=== PATIENT | male | born 1960 | race Caucasian/White ===

== ENCOUNTER 2018-08-22 07:26 | Emergency (ER) | payer OTHER ==
[2018-08-22 07:56] VITALS: BMI 33.4
[2018-08-22] MEDS ORDERED: LACTATED RINGERS SOLUTION 1000 ML INFUS.BAG IV ONE (08:29)
--- NOTE | 2018-08-22 08:43 | PDOC ---
History of Present Illness - General Chief Complaint: Diarrhea Stated Complaint: BACK PAIN Time Seen by Provider: 08/22/18 07:52 History Source: Patient Exam Limitations: No Limitations - History of Present Illness Initial Comments: HPI: 58 y/o male presenting to [facility] ER complaining of multiple episodes of diarrhea started last night around 10pm. States the diarrhea is watery and nonbloody. Endorses non bloody vomiting and diffuse abdominal pain. Also endorses chills without fever or diaphoresis. Trialed Imodium yesterday night with some relief. Tolerating PO. Recently returned from the [place] on 13 Aug 2018 after a 10 day visit. No similar symptoms while traveling. No other members of household with similar symptoms. No recent antibiotic use, last was approx. 8 months ago. Pt takes daily Percocet for chronic back pain. Has not taken it in three days. Past History - Past Medical History Allergies/Adverse Reactions: Allergies Allergy/AdvReac Type Severity Reaction Status Date / Time No Known Allergies Allergy Verified 08/22/18 07:45 Home Medications: Ambulatory Orders Albuterol Sulfate Inhaler - [Ventolin Hfa Inhaler -] 1 puff IH PRN 08/22/18 Budesonide/Formeterol Fumarate [SYMBICORT 160/4.5mcg -] 1 inh PO DAILY 08/22/18 Oxycodone HCl/Acetaminophen [Percocet 10-325 mg Tablet] 1 each PO PRN 08/22/18 Asthma: Yes COPD: No Other medical history: CHRONIC PAIN - Immunization History Immunization Up to Date: Yes - Suicide/Smoking/Psychosocial Hx Smoking History: Never smoked Information on smoking cessation initiated: No Hx Alcohol Use: No Drug/Substance Use Hx: No Review of Systems - Review of Systems Able to Perform ROS?: Yes Comments:: In addition to that documented in the HPI above, the additional ROS was obtained : Constitutional: Endorses chills. Denies fevers Head: Denies headache ENMT: Denies sore throat CV: Denies chest pain Resp: Denies acute SOB GI: Per HPI : Denies painful urination MSK: Denies recent trauma Skin: Denies new rashes Neuro: Denies new numbness or tingling or weakness Endocrine: Denies polyuria Heme: Denies bleeding or bruising *Physical Exam - Vital Signs Last Vital Signs Temp Pulse Resp BP Pulse Ox 98.0 F 112 H 18 118/80 96 08/22/18 07:45 08/22/18 07:45 08/22/18 07:45 08/22/18 07:45 08/22/18 07:45 - Physical Exam Comments: Constitutional: Nontoxic adult male in no acute distress or obvious discomfort. Obese body habitus Found semi-fowlers on hospital bed. Alert and oriented x4. Answered all questions appropriately and completely. Speech was non -labored, non-pressured. Head: Normocephalic. No obvious external signs of trauma. Eyes: Sclerae white. Moist conjunctiva, not injected. Ears: Hearing grossly intact. Nose: No nasal discharge. Throat: Oral cavity and pharynx normal. Moist oral mucosa. Neck: Supple, trachea is midline. Cardiovascular / Chest: Mildly tachycardic rate and regular rhythm. No murmur, rubs, clicks, or gallops. Peripheral pulses: radial pulses full. Respiratory: Breathing unlabored. Equal chest rise and fall. Mild diffuse wheezing. No stridor or rhonchi. Gastrointestinal: abdomen is diffusely tender without rebound but guarding. Soft and nondistended. No overlying skin lesions or obvious signs of trauma. Post surgical scar in umbilicus. Neuro: Alert and oriented. Moving all four extremities spontaneously. Skin: Warm, dry, and intact. : No R or L CVA tenderness. Psych: Affect: appropriate. Mood: normal. Moderate Sedation - Procedure Monitoring Vital Signs: Procedure Monitoring Vital Signs Temperature 98.0 F 08/22/18 07:45 Pulse Rate 112 H 08/22/18 07:45 Respiratory Rate 18 08/22/18 07:45 Blood Pressure 118/80 08/22/18 07:45 O2 Sat by Pulse Oximetry (%) 96 08/22/18 07:45 ED Treatment Course - LABORATORY CBC & Chemistry Diagram: 08/22/18 08:40 08/22/18 08:40 - ADDITIONAL ORDERS Additional order review: 08/22/18 08/22/18 10:01 08:40 Sodium 139 Potassium 3.9 Chloride 111 H Carbon Dioxide 21 Anion Gap 7 L BUN 21 H Creatinine 1.0 Creat Clearance w eGFR > 60 Random Glucose 99 Calcium 8.6 Total Bilirubin 0.4 AST 19 ALT 43 Alkaline Phosphatase 89 Total Protein 8.0 Albumin 4.0 Lipase 83 Urine Color Dk yellow Urine Appearance Slcloudy Urine pH 5.0 Ur Specific Bozrah 1.031 Urine Protein 2+ H Urine Glucose (UA) Negative Urine Ketones Negative Urine Blood 1+ H Urine Nitrite Negative Urine Bilirubin Negative Urine Urobilinogen Negative Ur Leukocyte Esterase Negative Urine WBC (Auto) 2 Urine RBC (Auto) 10 Ur Epithelial Cells Rare Hyaline Casts 15 Granular Casts 5 Urine Mucus Many 08/22/18 08:40 RBC 5.58 MCV 88.7 MCHC 34.8 RDW 13.8 MPV 8.4 Neutrophils % 64.6 Lymphocytes % 22.3 Monocytes % 10.5 H Eosinophils % 2.3 Basophils % 0.3 - RADIOLOGY Radiology Studies Ordered: Category Date Time Status ABDOMEN & PELVIS CT WITH CONTR [CT] Stat CT Scan 08/22/18 08:48 Completed - Medications Given in the ED: ED Medications Discontinued Medications Generic Name Dose Route Start Last Admin Trade Name Freq PRN Reason Stop Dose Admin Lactated Ringer's 1,000 ml 08/22/18 08:29 08/22/18 08:53 Lactated Ringers Solution IV 08/22/18 08:30 1,000 ml ONCE ONE Administration Medical Decision Making - Medical Decision Making *Reviewed vital signs, nursing notes, and prior visit documentation (if available). 58 y/o male with one day of vomiting and diarrhea with diffuse abdominal pain. Mildly tachycardic at triage. Will trend vitals. Suspect viral gastroenteritis made worse by mild opiate withdrawal. Will obtain CT of abdomen and pelvis, CBC , CMP, lipase, UA, and urine culture to further evaluate. Ordered IVFB. CBC unremarkable for leukocytosis. CMP unremarkable for significant electrolyte derangement. CT suggestive of diarrheal illness. Pt reasessed. Reports another episode of diarrhea. Ate a sandwich and drank water without vomiting. Repeat abdominal exam is unchanged from initial. Diffusely tender with grimace. Suspect secondary to acute gastroenteritis. Tachycardia resolved. Pt stable to discharge home with outpatient follow up as needed. *DC/Admit/Observation/Transfer Diagnosis at time of Disposition: Diarrhea Qualifiers: Diarrhea type: unspecified type Qualified Code(s): R19.7 - Diarrhea, unspecified - Discharge Dispostion Disposition: HOME Condition at time of disposition: Good Decision to Admit order: No - Referrals Referrals: ON STAFF,NOT [Primary Care Provider] - - Patient Instructions Printed Discharge Instructions: DI for Viral Gastroenteritis -- Adult Additional Instructions: Hoy te vieron por diarrea y vmitos. Irene sntomas probablemente son causados por un virus y desaparecen en los prximos ayoub sin medicamentos. Por favor contine bebiendo lquidos (agua, Gatorade, etc.) para mantenerse hidratado. Puede probar y comer edda comida blanda (galletas, etc.) despus de tiny dejado de vomitar simone 12 horas. Regrese a la lala de emergencias si banks vmito empeora y ya no puede retener lquidos, si comienza a sentirse deshidratado, si tiene fiebre, se desmaya, se desorienta, comienza a vomitar chad, tiene diarrea con chad o sientes que necesitas atencin de emergencia adicional. Juan Pablo puede rosita a banks mdico de atencin primaria si irene sntomas no mejoran. Vaya al departamento de emergencias ms cercano si banks afeccin empeora o si nadine que necesita edda evaluacin de emergencia adicional. You were seen today for diarrhea and vomiting. Your symptoms are likely caused by a virus and well go away in the next few days without medication. Please continue to drink fluids (water, Gatorade, etc) to stay hydrated. You can try and eat a small bland meal (crackers, etc) after you have stopped vomiting for 12 hours. Return to the emergency room if your vomiting becomes much worse and you are no longer able to keep fluids down, if you begin to feel dehydrated, if you develop a fever, pass out, become disoriented, begin vomiting blood, have bloody diarrhea, or you feel like you need additional emergency care. You can also see your primary care doctor if your symptoms do not improve. Go to the nearest emergency department if your condition worsens or you feel like you need additional emergency evaluation. Print Language: BELARUSIAN - Post Discharge Activity
--- NOTE | 2018-08-22 08:57 | PDOC ---
Attending Attestation - Resident Resident Name: NorwoodMarco A - ED Attending Attestation I have performed the following: I have examined & evaluated the patient, The case was reviewed & discussed with the resident, I agree w/resident's findings & plan, Exceptions are as noted - HPI HPI: 08/22/18 08:51 58yo M hx BPH, chronic low back pain presents to the ED with 24 hours of N/V/D and diffuse abd pain. Pt reports 5 episodes of NBNB emesis and innumerable episodes of brown, watery non blood diarrhea. Pt points to his lower abdomen when asked where the pain hurts the most. Denies hx similar sxs or sick contacts. [place], has been well since. Tried immodium yest with no relief of diarrhea. Denies fevers, +chills. Denies headache, focal weakness/numbness, dizziness, cp, sob, LE edema, rashes. Pt was taking percocet for his chronic back pain up until 2 days ago. - Physicial Exam PE: 08/22/18 08:57 agree with resident exam +diffuse abd pain including RLQ and LLQ. +guarding, no rebound. Mild abd distention. - Medical Decision Making 08/22/18 08:58 58yo M presents to the ED with N/V/D. Vitals remarkable for tachycardia to 112. Exam with diffuse abd ttp, RLQ and LLQ. DDx includes gastroenteritis vs colitis vs diverticulitis vs appendicitis vs UTI. Plan -labs -CTAP w IV contrast -IVF -UA/Ucx -reassess 08/22/18 13:05 CTAP with no acute path labs wnl ua neg for infection pt feeling much better, tolerating PO HR normalized after 1L fluids Likely gastroenteritis Plan for DC with PMD f/u and strict return precations Pt requests DC home I discussed the physical exam findings, ancillary test results and final diagnoses with the patient. I answered all of the patient's questions. The patient was satisfied with the care received and felt comfortable with the discharge plan and treatment plan. The patient will call their primary care physician within 24 hours to arrange follow-up and will return to the Emergency Department with any new, persistent or worsening symptoms.
[2018-08-22 09:09] LABS: BASO % 0.3 % (0-2.0); EOS % 2.3 % (0-4.5); HEMATOCRIT 49.5 % (35.4-49); HEMOGLOBIN 17.2 GM/dL (11.7-16.9); LYMPH % 22.3 % (8-40); MCH 30.8 pg (25.7-33.7); MCHC 34.8 g/dl (32.0-35.9); MEAN CELL VOLUME 88.7 fl (80-96); MEAN PLT VOLUME 8.4 fl (7.5-11.1); MONO % 10.5 % (3.8-10.2); NEUT % 64.6 % (42.8-82.8); PLATELET COUNT 169 K/MM3 (134-434); RBC 5.58 M/mm3 (4.00-5.60); RDW 13.8 % (11.9-15.9); WHITE BLOOD COUNT 7.5 K/mm3 (4.0-10.0)
[2018-08-22 09:55] LABS: ALK PHOS 89 U/L (45-117); ANION GAP 7 MMOL/L (8-16); BILIRUBIN,TOTAL 0.4 mg/dL (0.2-1); BLOOD UREA NITROGEN 21 mg/dL (7-18); CALCIUM 8.6 mg/dL (8.5-10.1); CHLORIDE 111 mmol/L (98-107); CO2 21 mmol/L (21-32); GLUCOSE,RANDOM 99 mg/dL (74-106); LIPASE 83 U/L (73-393); POTASSIUM 3.9 mmol/L (3.5-5.1); SGOT/AST 19 U/L (15-37); SGPT/ALT 43 U/L (13-61); SODIUM 139 mmol/L (136-145)
[2018-08-22 10:59] LABS: URINE APPEARANCE SLCLOUDY; URINE BILIRUBIN NEGATIVE (<2.0 mg/dL); URINE GLUCOSE (UA) NEGATIVE (NEGATIVE); URINE KETONE NEGATIVE (NEGATIVE); URINE LEUK ESTERASE NEGATIVE (NEGATIVE); URINE NITRITE NEGATIVE (NEGATIVE); URINE PROTEIN 2+ (NEGATIVE); URINE UROBILINOGEN NEGATIVE mg/dL (0.2-1.0)
[2018-08-22 11:03] LABS: URINE COLOR DK YELLOW
[2018-08-22 11:05] LABS: EPI CELLS RARE /HPF (FEW); GRANULAR CASTS 5 /lpf; URINE HYALINE CAST 15 /lpf; URINE MUCUS MANY
[2018-08-22 12:01] VITALS: BP 110/76; PULSE 75; TEMP 97.6
== END 2018-08-22 13:17 | disposition home or self-care (01) ==
LOC: JER 07:26
PROC: 3E0337Z Introduction of Electrolytic and Water Balance Substance into Peripheral Vein, Percutaneous Approach (ICD-10-PCS; principal; 2018-08-22)
DX: R19.7 Diarrhea, unspecified (principal)
CPT/HCPCS: 36415; 74177-TC; 80053; 81003; 81015; 83690; 85025; 87086; 96360; 99283-25